=== PATIENT | male | born 1955 | race Caucasian/White ===

== ENCOUNTER → 2020-08-29 07:59 | Outpatient (CLI) | payer OTHER, SELFPAY ==
[2020-08-29 09:00] LABS: Alanine Aminotransferase 19 IU/L (<50); Albumin 4.3 g/dL (3.5-5.0); Albumin Globulin Ratio 1.9 (1.0-2.8); Alkaline Phosphatase 54 U/L (38-126); Aspartate Aminotransferase 27 IU/L (17-59); BUN Creatinine Ratio 27.5 (6-22); Bilirubin Total 0.7 mg/dL (0.2-1.3); Blood Urea Nitrogen 22 mg/dL (9-20); Calcium 9.4 mg/dL (8.4-10.2); Carbon Dioxide 29 mmol/L (22-32); Chloride 105 mmol/L (98-107); Cholesterol 187 mg/dL (140-199); Estimated Glomerular Filt Rate > 60.0 mL/min (>60); Globulin 2.3 g/dL (1.7-4.1); Glucose 102 mg/dL (80-110); HDL Cholesterol 61 mg/dL (40-60); HEMOLYSIS < 15 (0-50); LDL Cholesterol Calculated 106 mg/dL (<100); Potassium 4.7 mmol/L (3.4-5.1); Sodium 140 mmol/L (137-145); Total Protein 6.6 g/dL (6.3-8.2); Triglycerides 102 mg/dL (35-150)
[2020-08-29 09:26] LABS: Prostate Specific Antigen Scrn 1.27 ng/mL (0.1-4.0)
== END ==
PROVIDERS: PCP Internal Medicine; Referring Provider Internal Medicine; Visit Provider Internal Medicine
DX: Z00.00 Encounter for general adult medical examination without abnormal findings (principal); Z12.5 Encounter for screening for malignant neoplasm of prostate
CPT/HCPCS: 36415; 80053; 80061; G0103

== ENCOUNTER → 2020-09-28 15:36 | Outpatient (CLI) | payer OTHER, SELFPAY ==
--- NOTE | 2020-09-28 15:40 | DI.ECHO.S_ITS ---
[facility] +---------+ : : [address] : [address] [address] : : : : [id number] : : : : Phone: [phone]+ Echocardiogram Report + + :Name: SYLVIA KRUGER Study Date: 09/28/2020 Height: 73 in : :[facility] ReadingLocation: Weight: 170 lb : : Gender: Male BSA: 2.0 m2 : :: 1955 Age: 65 yrs BP: 128/89 mmHg: :Reason For Study: MVR : :Ordering Physician: ANASTASIIA, : :KARINE Khan Performed By: Kevin Brizuela : :Referring: KARINE LAURENT : + + Interpretation Summary The left ventricle is normal in size and wall thickness. The ejection fraction is estimated to be 50-55%. The right ventricle is normal in size and function. 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 The E velocity is about 1.23 m/s across mitral valve. The mitral valve mean gradient is 3.5 mmHg. No significant mitral valve stenosis. There is no mitral regurgitation noted. There is mild tricuspid regurgitation. The right ventricular systolic pressure is estimated to be at least 30.5 mmHg based on an estimated right atrial pressure of 15 mm Hg. Procedure: A two-dimensional transthoracic echocardiogram with color flow and Doppler was performed. The study quality was technically adequate. There is no prior echocardiogram noted for this patient. The patient was in sinus rhythm with heart rates between 78-84 bpm during the exam. Left Ventricle: The left ventricle is normal in size and wall thickness. There is no thrombus. The ejection fraction is estimated to be 50-55%. Septal motion is consistent with post-operative state. MV E/A: 1.4 Med Peak E' Denilson: 9.6 cm/sec E/E' med: 12.9. Right Ventricle: The right ventricle is normal in size and function. Atria: Both atria are normal in size. There is no Doppler evidence for an interatrial shunt. 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 The gradients for this prosthetic mitral valve are in the normal range. The mitral valve mean gradient is 3.5 mmHg. The E velocity is about 1.23 m/s across mitral valve. No significant mitral valve stenosis. There is no mitral regurgitation noted. Aortic Valve: The aortic valve is normal in structure and function. No aortic regurgitation is present. Tricuspid Valve: The tricuspid valve is normal. There is mild tricuspid regurgitation. The right ventricular systolic pressure is estimated to be at least 30.5 mmHg based on an estimated right atrial pressure of 15 mm Hg. Pulmonic Valve: The pulmonic valve is not well visualized. There is no pulmonic valvular regurgitation. Great Vessels: The aortic root is normal size. The dimensions of the ascending aorta are normal. The IVC is dilated (diameter is greater than 2.1 cm) and it collapses less than 50% with a sniff. This suggests a high right atrial pressure of 15 mm Hg. Pericardium/ Pleura There is no pericardial effusion. There is no pleural effusion. MMode/2D Measurements & Calculations LVIDd: 4.8 cm LVOT diam: 2.3 cm LVIDs: 3.2 cm Ao root diam: 3.6 cm FS: 33.3 % asc Aorta Diam: 3.3 cm IVSd: 0.78 cm LVPWd: 0.67 cm LV sanz. diameter/BSA (cm/m^2): 2.4 LV sys. diameter/BSA (cm/m^2): 1.6 LA A2 area: 15.4 cm2 RA long axis: 4.9 cm LA A4 area: 15.9 cm2 RA area: 18.2 cm2 LA length (vol): 4.9 cm RA vol: 57.4 ml LA vol: 42.1 ml RA : 28.6 ml/m2 LA vol index: 21.0 ml/m2 IVC diam: 2.5 cm TAPSE: 2.1 cm Doppler Measurements & Calculations Ao V2 max: 109.7 cm/sec LVOT Max Denilson: 87.3 cm/sec Ao V2 mean: 80.5 cm/sec LV V1 max P.0 mmHg Ao max P.8 mmHg LV V1 VTI: 17.8 cm Ao mean P.8 mmHg JESSICA(I,D): 3.5 cm2 Ao V2 VTI: 21.1 cm JESSICA(V,D): 3.3 cm2 sev ratio: 0.84 JESSICA indexed to BSA (cm^2/m^2): 1.7 MV E max denilson: 123.6 cm/sec TR max denilson: 197.0 cm/sec MV A max denilson: 91.0 cm/sec TR max P.5 mmHg MV E/A: 1.4 PA pr(Accel): 39.2 mmHg Med Peak E' Denilson: 9.6 cm/sec E/E' med: 12.9 Lat Peak E' Denilson: 10.8 cm/sec E/E' lat: 11.5 E/e' average: 12.2 MV dec time: 0.22 sec MVA(VTI): 2.7 cm2 MV V2 mean: 90.3 cm/sec SV(LVOT): 73.4 ml MV mean P.4 mmHg MV V2 VTI: 27.1 cm Reading Physician:06:23 PM
== END ==
PROVIDERS: PCP Internal Medicine; Referring Provider Internal Medicine; Visit Provider Internal Medicine
DX: I07.1 Rheumatic tricuspid insufficiency (principal)
CPT/HCPCS: 93306

== ENCOUNTER → 2022-10-31 14:18 | Outpatient (CLI) | payer MEDICARE, OTHER, SELFPAY ==
[2022-10-31 17:24] LABS: Prostate Specific Antigen Scrn 1.26 ng/mL (0.1-4.0)
== END ==
PROVIDERS: PCP Internal Medicine; Referring Provider Internal Medicine; Visit Provider Internal Medicine
DX: Z12.5 Encounter for screening for malignant neoplasm of prostate (principal)
CPT/HCPCS: 36415; G0103

== ENCOUNTER → 2023-05-12 15:37 | Outpatient (CLI) | payer MEDICARE, OTHER, SELFPAY ==
[2023-05-12 16:53] LABS: Add Manual Diff / Slide Review NO; Basophils Absolute Auto 0 /uL (0-100); Basophils Percent Auto 0.7 % (0-2); Eosinophils Absolute Auto 100 /uL (0-450); Eosinophils Percent Auto 2.1 % (2-4); Hematocrit 41.6 % (41-53); Lymphocytes Absolute Auto 1300 /uL (1100-4500); Lymphocytes Percent Auto 27.4 % (25-40); Mean Corpuscular HGB Conc 33.6 % (30-36); Mean Corpuscular Hemoglobin 29.6 PG (26-34); Mean Corpuscular Volume 88.1 fL (80-100); Monocytes Absolute Auto 400 /uL (0-900); Monocytes Percent Auto 8.7 % (3-14); Neutrophils Absolute Auto 3000 /uL (1500-7000); Neutrophils Percent Auto 61.1 % (50-75); Platelet Count 183 X10^3/uL (150-400); Red Blood Cell Count 4.72 X10^6/uL (4.5-5.9); Red Cell Distribution Width 13.6 % (11.6-14.8); White Blood Cell Count 4.9 X10^3/uL (4.5-11.0)
[2023-05-12 17:16] LABS: Alanine Aminotransferase 20 IU/L (<50); Albumin 4.4 g/dL (3.5-5.0); Albumin Globulin Ratio 1.6 (1.0-2.8); Alkaline Phosphatase 52 U/L (38-126); Aspartate Aminotransferase 28 IU/L (17-59); BUN Creatinine Ratio 27.5 (6-22); Bilirubin Total 0.5 mg/dL (0.2-1.3); Blood Urea Nitrogen 22 mg/dL (9-20); Calcium 9.3 mg/dL (8.4-10.2); Carbon Dioxide 30 mmol/L (22-32); Chloride 103 mmol/L (98-107); Estimated Glomerular Filt Rate > 60 mL/min (>60); Globulin 2.7 g/dL (1.7-4.1); Glucose 95 mg/dL (80-110); HEMOLYSIS < 15 (0-50); Potassium 4.3 mmol/L (3.4-5.1); Sodium 138 mmol/L (137-145); Total Protein 7.1 g/dL (6.3-8.2)
[2023-05-12 17:53] LABS: TSH w/ Reflex to FT4 1.62 uIU/mL (0.47-4.68)
== END ==
PROVIDERS: PCP Internal Medicine; Referring Provider Internal Medicine; Visit Provider Internal Medicine
DX: R00.0 Tachycardia, unspecified (principal)
CPT/HCPCS: 36415; 80053; 84443; 85025

== ENCOUNTER → 2023-05-22 14:38 | Outpatient (CLI) | payer MEDICARE, OTHER, SELFPAY ==
--- NOTE | 2023-05-22 14:39 | DI.ECHO.S_ITS ---
[facility] +---------+ : : [address] : [address] [address] : : : : [id number] : : : : Phone: [phone] +---------+ Echocardiogram Report + + :Name: SYLVIA KRUGER Study Date: 05/22/2023 Height: 73 in : :[facility] ReadingLocation: Weight: 165 lb : : Gender: Male BSA: 2.0 m2 : :: 1955 Age: 67 yrs BP: 126/90 mmHg: :Reason For Study: Tachycardia : :Ordering Physician: ANASTASIIA, : :KARINE Khan Performed By: Sarita Zavala : :Referring: KARINE LAURENT : + + Interpretation Summary 1) Normal left ventricular size and thickness with mildly reduced systolic function (EF 45-50%). 2) Mildly enlarged right ventricle with normal function. 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 Mitral valve function as expected (mean inflow gradient 5mmHg). There is trace mitral regurgitation. 4) The right ventricular systolic pressure is estimated to be at least 29 mmHg based on an estimated right atrial pressure of 15 mm Hg. 5) Compared to the Echo done 09/28/2020, LVEF has decreased slightly from 50- 55% to 45-50% on this study. Procedure: A two-dimensional transthoracic echocardiogram with color flow and Doppler was performed. The study quality was technically difficult. Comparison is made with the echocardiogram of 09/28/2020. The patient was in normal sinus rhythm during the exam. Left Ventricle: The left ventricle is normal in size and wall thickness. The ejection fraction is estimated to be 45-50%. Diastolic parameters suggest a relaxation abnormality of the left ventricle, consistent with probable normal filling pressures. Right Ventricle: The right ventricle is mildly dilated. The right ventricular systolic function is normal. Atria: The left atrium is mildly dilated. Right atrial size is normal. There is no Doppler evidence for an interatrial shunt. 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 The mitral valve mean gradient is 5 mmHg. There is trace mitral regurgitation. Aortic Valve: The aortic valve is trileaflet. The aortic valve opens well. There is mild aortic valve sclerosis. There is no aortic valve stenosis. No aortic regurgitation is present. Tricuspid Valve: The tricuspid valve is normal. There is no tricuspid stenosis. There is mild tricuspid regurgitation. The right ventricular systolic pressure is estimated to be at least 29 mmHg based on an estimated right atrial pressure of 15 mm Hg. Pulmonic Valve: The pulmonic valve leaflets are thin and pliable; valve motion is normal. There is no pulmonic valvular stenosis. There is trace pulmonic regurgitation. Great Vessels: The aortic root is normal size. The ascending aorta is normal in size. The pulmonary artery is normal size. The IVC is dilated (diameter is greater than 2.1 cm) and it collapses less than 50% with a sniff. This suggests a high right atrial pressure of 15 mm Hg. Pericardium/ Pleura There is no pericardial effusion. There is no pleural effusion. MMode/2D Measurements & Calculations LVIDd: 4.7 cm LVOT diam: 2.1 cm LVIDs: 3.5 cm Ao root diam: 3.6 cm FS: 25.5 % asc Aorta Diam: 3.1 cm IVSd: 0.80 cm LVPWd: 0.80 cm LV sanz. diameter/BSA (cm/m^2): 2.4 LV sys. diameter/BSA (cm/m^2): 1.8 LA A2 area: 24.4 cm2 RA long axis: 5.4 cm LA A4 area: 16.9 cm2 RA area: 18.4 cm2 LA length (vol): 6.0 cm RA vol: 52.9 ml LA vol: 58.4 ml RA : 26.7 ml/m2 LA vol index: 29.5 ml/m2 RVD1 (basal): 4.1 cm LVLs ap4: 7.8 cm LVLd ap2: 8.5 cm TAPSE_phl: 2.1 cm LVLs ap2: 7.3 cm Doppler Measurements & Calculations Lat Peak E' Denilson: 13.4 cm/sec TR max denilson: 188.0 cm/sec TR max P.2 mmHg PA V2 max: 75.6 cm/sec PA V2 mean: 53.7 cm/sec PA mean P.0 mmHg PA pr(Accel): 30.4 mmHg MV V2 mean: 106.0 cm/sec MV mean P.0 mmHg MV V2 VTI: 36.5 cm Reading Physician:05:07 PM
== END ==
PROVIDERS: PCP Internal Medicine; Referring Provider Internal Medicine; Visit Provider Internal Medicine
DX: R00.0 Tachycardia, unspecified (principal); Z98.890 Other specified postprocedural states; I08.2 Rheumatic disorders of both aortic and tricuspid valves
CPT/HCPCS: 93306

== ENCOUNTER → 2023-10-14 11:14 | Outpatient (CLI) | payer MEDICARE, OTHER, SELFPAY ==
[2023-10-14 12:13] LABS: Add Manual Diff / Slide Review NO; Basophils Absolute Auto 0 /uL (0-100); Basophils Percent Auto 0.4 % (0-2); Eosinophils Absolute Auto 0 /uL (0-450); Eosinophils Percent Auto 0.9 % (2-4); Hematocrit 40.8 % (41-53); Hemoglobin 13.6 g/dL (13.5-17.5); Lymphocytes Absolute Auto 1100 /uL (1100-4500); Lymphocytes Percent Auto 19.7 % (25-40); Mean Corpuscular HGB Conc 33.3 % (30-36); Mean Corpuscular Hemoglobin 29.8 PG (26-34); Mean Corpuscular Volume 89.6 fL (80-100); Monocytes Absolute Auto 400 /uL (0-900); Monocytes Percent Auto 6.9 % (3-14); Neutrophils Absolute Auto 3900 /uL (1500-7000); Neutrophils Percent Auto 72.1 % (50-75); Platelet Count 177 X10^3/uL (150-400); Red Blood Cell Count 4.55 X10^6/uL (4.5-5.9); White Blood Cell Count 5.4 X10^3/uL (4.5-11.0)
[2023-10-14 12:36] LABS: Alanine Aminotransferase 17 IU/L (<50); Albumin 4.1 g/dL (3.5-5.0); Albumin Globulin Ratio 1.8 (1.0-2.8); Alkaline Phosphatase 49 U/L (38-126); Aspartate Aminotransferase 25 IU/L (17-59); BUN Creatinine Ratio 24.6 (6-22); Bilirubin Total 0.7 mg/dL (0.2-1.3); Blood Urea Nitrogen 17 mg/dL (9-20); Calcium 9.1 mg/dL (8.4-10.2); Carbon Dioxide 30 mmol/L (22-32); Chloride 107 mmol/L (98-107); Estimated Glomerular Filt Rate > 60 mL/min (>60); Globulin 2.3 g/dL (1.7-4.1); Glucose 77 mg/dL (80-110); HEMOLYSIS < 15 (0-50); Potassium 4.4 mmol/L (3.4-5.1); Sodium 142 mmol/L (137-145); Total Protein 6.4 g/dL (6.3-8.2)
[2023-10-14 13:08] LABS: TSH w/ Reflex to FT4 1.16 uIU/mL (0.47-4.68)
== END ==
PROVIDERS: PCP Internal Medicine; Referring Provider Internal Medicine; Visit Provider Internal Medicine
DX: R00.2 Palpitations (principal)
CPT/HCPCS: 36415; 80053; 84443; 85025

== ENCOUNTER → 2023-11-25 10:09 | Outpatient (CLI) | payer MEDICARE, OTHER, SELFPAY ==
[2023-11-25 11:11] LABS: Influenza A - CEPHEID Flu A NEGATIVE (NEGATIVE); Influenza B - CEPHEID Flu B NEGATIVE (NEGATIVE); Respiratory Syncytial Virus Negative (Negative)
[2023-11-25 11:17] LABS: COVID-19 CEPHEID 4-PLEX PCR Negative (Negative)
== END ==
PROVIDERS: PCP Internal Medicine; Visit Provider Physician Assistant
DX: R05.1 Acute cough (principal)
CPT/HCPCS: 0241U

== ENCOUNTER → 2024-02-19 14:31 | Outpatient (CLI) | payer MEDICARE, OTHER, SELFPAY ==
[2024-02-19 15:33] LABS: BUN Creatinine Ratio 23.2 (6-22); Blood Urea Nitrogen 19 mg/dL (9-20); Calcium 8.7 mg/dL (8.4-10.2); Carbon Dioxide 26 mmol/L (22-32); Chloride 108 mmol/L (98-107); Estimated Glomerular Filt Rate > 60 mL/min (>60); Glucose 90 mg/dL (80-110); HEMOLYSIS < 15 (0-50); Potassium 4.6 mmol/L (3.4-5.1); Sodium 139 mmol/L (137-145)
== END ==
PROVIDERS: PCP Internal Medicine; Referring Provider Internal Medicine; Visit Provider Internal Medicine
DX: I42.9 Cardiomyopathy, unspecified (principal)
CPT/HCPCS: 36415; 80048

== ENCOUNTER → 2024-08-06 09:09 | Outpatient (CLI) | payer MEDICARE, OTHER, SELFPAY ==
--- NOTE | 2024-08-06 09:11 | DI.ECHO.S_ITS ---
[facility]---------+ [facility] : : [address] : : [place] : : [id number] : : Phone: [phone] Echocardiogram Report + + :Name: SYLVIA KRUGER Study Date: 08/06/2024 Height: 73 in : :[facility] ReadingLocation: Weight: 160 lb : : Gender: Male BSA: 2.0 m2 : :: 1955 Age: 68 yrs BP: 125/87 mmHg: :Reason For Study: SYSTOLIC HEART FAILURE : :Ordering Physician: OSCAR MENDES Performed By: Sina Villasenor : :Referring: OSCAR MENDES : + + Interpretation Summary 1. The left ventricular contractility is mildly compromised. Estimate ejection fraction approximately 45 to 50% with mild global hypokinesis. No LVH. Unable to comment on diastolic function. 2. The right ventricle contractility is normal. 3. All cardiac chambers are of normal size. 4. No significant valvular abnormalities. Mitral annular ring noted in the mitral position with no significant insufficiency nor stenosis of the mitral valve. 5. No obvious intracardiac shunts. 6. No obvious intracardiac masses nor thrombi. 7. No hemodynamically significant pericardial effusion. 8. Low right-sided filling pressures. Conclusion: Mildly compromised left ventricular systolic function with intact mitral valve repair. When compared with previous echocardiogram, no significant changes have occurred. Procedure: A two-dimensional transthoracic echocardiogram with color flow and Doppler was performed. The study quality was technically good. Comparison is made with the echocardiogram of 11/14/2023. The patient was in normal sinus rhythm during the exam. Left Ventricle: The left ventricle is normal in size. There is normal left ventricular wall thickness. There is no ventricular septal defect visualized. The ejection fraction is estimated to be 45-50%. There is mild global hypokinesis of the left ventricle. Right Ventricle: The right ventricle is normal in size and function. Atria: The left atrial size is normal. Right atrial size is normal. There is no Doppler evidence for an interatrial shunt. 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 The mitral valve mean gradient is 3.1 mmHg. There is no mitral regurgitation noted. Aortic Valve: The aortic valve is trileaflet. The aortic valve opens well. No aortic regurgitation is present. Tricuspid Valve: The tricuspid valve leaflets are thin and pliable. There is trace tricuspid regurgitation. Pulmonic Valve: The pulmonic valve leaflets are thin and pliable; valve motion is normal. There is trace pulmonic regurgitation. Great Vessels: The aortic root is normal size. The dimensions of the ascending aorta are normal. The pulmonary artery is normal size. The IVC is of normal diameter and collapses greater than 50% with a sniff. This suggests a low right atrial pressure of 3 mm Hg. Pericardium/ Pleura There is no pericardial effusion. There is no pleural effusion. MMode/2D Measurements & Calculations LVIDd: 4.3 cm LVOT diam: 2.4 cm LVIDs: 3.0 cm Ao root diam: 3.5 cm FS: 30.0 % asc Aorta Diam: 3.4 cm EPSS: 0.58 cm Ao Arch Diam (Prox Trans): 1.9 cm IVSd: 0.69 cm LVPWd: 0.90 cm LV sanz. diameter/BSA (cm/m^2): 2.2 LV sys. diameter/BSA (cm/m^2): 1.5 LA A2 area: 22.8 cm2 RA long axis: 4.4 cm LA A4 area: 18.2 cm2 RA area: 15.2 cm2 LA length (vol): 5.7 cm RA vol: 44.6 ml LA vol: 62.2 ml RA : 22.8 ml/m2 LA vol index: 31.8 ml/m2 IVC diam: 2.0 cm RVD1 (basal): 3.6 cm RVD2 (mid): 3.2 cm TAPSE: 2.1 cm Doppler Measurements & Calculations Ao V2 max: 94.6 cm/sec LVOT Max Denilson: 64.0 cm/sec Ao V2 mean: 64.8 cm/sec LV V1 max P.6 mmHg Ao max P.6 mmHg LV V1 VTI: 12.7 cm Ao mean P.8 mmHg JESSICA(I,D): 3.2 cm2 Ao V2 VTI: 18.0 cm JESSICA(V,D): 3.1 cm2 sev ratio: 0.71 JESSICA indexed to BSA (cm^2/m^2): 1.6 MV E max denilson: 114.6 cm/sec TR max denilson: 198.4 cm/sec MV A max denilson: 90.1 cm/sec TR max P.7 mmHg MV E/A: 1.3 PA V2 max: 85.3 cm/sec Med Peak E' Denilson: 7.7 cm/sec PA V2 mean: 59.5 cm/sec E/E' med: 14.8 PA mean P.6 mmHg Lat Peak E' Denilson: 9.2 cm/sec PA pr(Accel): 31.0 mmHg E/E' lat: 12.5 E/e' average: 13.6 MV dec time: 0.22 sec MVA(VTI): 1.8 cm2 MV V2 mean: 83.4 cm/sec SV(LVOT): 57.6 ml MV mean P.1 mmHg MV V2 VTI: 32.1 cm Reading Physician:
== END ==
PROVIDERS: PCP Internal Medicine; Referring Provider Internal Medicine; Visit Provider Internal Medicine
DX: I50.22 Chronic systolic (congestive) heart failure (principal); Z98.890 Other specified postprocedural states
CPT/HCPCS: 93306

== ENCOUNTER → 2024-08-19 15:38 | Outpatient (CLI) | payer MEDICARE, OTHER, SELFPAY ==
--- NOTE | 2024-08-19 15:39 | DI.CT.S_ITS ---
PROCEDURE: CT CHEST WO CON INDICATIONS: Pulmonary nodule, see comparison section below. TECHNIQUE: Noncontrast 5 mm thick sections acquired from the pulmonary apices to the posterior costophrenic angles. 1 mm lung window, 5 mm thick coronal and sagittal and 7 mm axial MIP reformats were then acquired. For radiation dose reduction, the following was used: automated exposure control, adjustment of mA and/or kV according to patient size. COMPARISON: None. A report from a prior CT coronary artery scoring study from [facility] was obtained for review but the hard copy images are not available for review. The report describes a 6 mm nodule along the left major fissure and recommended a six-month follow-up. FINDINGS: Image quality: Diagnostic. Lower Neck: No enlarged lymph nodes. Thyroid: No thyroid nodules which require sonographic follow up, per consensus guidelines. Axillae: No enlarged lymph nodes. Chest Wall: Unremarkable. Bones: Unremarkable. Lungs and Pleura: No pneumothorax or pleural effusions. A 3 mm maximal AP dimension nodular opacity is seen along the posterior border of the left major fissure, mid chest level, seen on series 3, image 185, measuring up to 8 mm in maximal transverse dimension, 3/186. No new nodule is seen elsewhere. Heart: Heart size is normal. No pericardial effusion. Thoracic Vessels: The aorta and pulmonary arteries demonstrate normal size. Mediastinum and Sonal: No enlarged lymph nodes. Esophagus: No wall thickening. No hiatal hernia. Upper Abdomen: Visualized upper abdomen solid organs and bowel loops appear normal. IMPRESSION: The left major fissure nodular opacity is near the hilum and likely represents a fissural lymph node. However, the comparison prior study allowing accurate assessment for size and morphology has not been obtained for review. Ideally that study should be obtained an reviewed, with an addendum to this report generated. Multiple attempts were made to obtain the comparison images. Perhaps the ordering healthcare provider and/or the patient can successfully obtained those images from the [facility]. Dictated by: Jhon Torre M.D. on 08/20/2024 at 13:11 Approved by: Jhon Torre M.D. on 08/20/2024 at 13:19
== END ==
PROVIDERS: PCP Internal Medicine; Referring Provider Internal Medicine; Visit Provider Internal Medicine
DX: R91.1 Solitary pulmonary nodule (principal)
CPT/HCPCS: 71250

== ENCOUNTER → 2025-02-10 15:58 | Outpatient (CLI) | payer MEDICARE, OTHER, SELFPAY ==
[2025-02-10 16:17] LABS: Add Manual Diff / Slide Review NO; Hematocrit 39.1 % (41-53); Hemoglobin 13.4 g/dL (13.5-17.5); Lymphocytes Absolute Auto 1200 /uL (1100-4500); Mean Corpuscular HGB Conc 34.3 % (30-36); Mean Corpuscular Hemoglobin 30.6 PG (26-34); Mean Corpuscular Volume 89.4 fL (80-100); Platelet Count 153 X10^3/uL (150-400)
[2025-02-10 17:03] LABS: Alanine Aminotransferase 20 IU/L (<50); Albumin 4.3 g/dL (3.5-5.0); Albumin Globulin Ratio 2.0 (1.0-2.8); Alkaline Phosphatase 53 U/L (38-126); Blood Urea Nitrogen 18 mg/dL (9-20); Calcium 9.1 mg/dL (8.4-10.2); Carbon Dioxide 30 mmol/L (22-32); Chloride 104 mmol/L (98-107); Estimated Glomerular Filt Rate > 60 mL/min (>60); Globulin 2.2 g/dL (1.7-4.1); Glucose 98 mg/dL (70-99); HEMOLYSIS < 15 (0-50); Magnesium 1.9 mg/dL (1.6-2.3); Potassium 4.5 mmol/L (3.4-5.1); Sodium 138 mmol/L (137-145); Total Protein 6.5 g/dL (6.3-8.2)
[2025-02-10 17:32] LABS: TSH w/ Reflex to FT4 1.60 uIU/mL (0.47-4.68)
== END ==
PROVIDERS: PCP Internal Medicine; Referring Provider Internal Medicine; Visit Provider Internal Medicine
DX: D64.9 Anemia, unspecified (principal); M62.838 Other muscle spasm; R13.10 Dysphagia, unspecified
CPT/HCPCS: 36415; 80053; 83735; 84443; 85025

== ENCOUNTER → 2025-02-13 13:03 | Outpatient (CLI) | payer MEDICARE, OTHER, SELFPAY ==
--- NOTE | 2025-02-13 13:05 | DI.MRI.S_ITS ---
PROCEDURE: MR HEAD/BRAIN WO/W CON INDICATIONS: cranial nerve disease, facial muscle spasm TECHNIQUE: Noncontrast axial T1 spin echo, axial T2 fast spin echo, sagittal and axial FLAIR, coronal T2 fast spin echo, axial gradient echo, axial diffusion and ADC through the brain. After the administration of contrast, axial and coronal and sagittal T1 spin echo with fat saturation through the brain. COMPARISON: [facility], CT, CT CHEST WO CON, 08/19/2024, 15:47. FINDINGS: Image quality: Excellent. CSF spaces: Basal cisterns are patent. No extra-axial fluid collections. Ventricles are normal in size and shape. Brain: No midline shift. No acute intracranial bleeds within the right anterolateral frontal lobe, there are 2 adjacent foci of irregular peripheral enhancement, spanning 40 mm anteroposterior by 20 mm transverse by 40 mm craniocaudal. There is moderate surrounding ill-defined FLAIR signal elevation, spanning 60 mm anteroposterior. There is a small amount of low gradient echo signal intensity material within the anterior more the of this lesion, consistent with hemorrhagic products. There is increased diffusion signal within these lesions. Overlying sulcal effacement is present. There is mild, roughly 3 mm of leftward midline shift anteriorly is cerebral volume loss for age. There is periventricular white matter chronic small vessel ischemic change. The brainstem appears normal. Diffusion-weighted images demonstrate no acute infarct. No chronic ischemic insults. Normal intravascular flow voids are present. Skull and face: Calvarial marrow is normal in signal. Orbits appear normal. Sinuses: Sinuses and mastoids appear clear. IMPRESSION: 1. Indeterminate right frontal lobe lesion with surrounding vasogenic edema and mild associated leftward midline shift. Differential considerations include abscess, as well as metastatic disease. There is a small amount of chronic hemorrhagic material within the anterior aspect of this lesion. No evidence of acute intracranial hemorrhage. Dictated by: Darren Hernandez M.D. on 02/14/2025 at 12:09 Approved by: Darren Hernandez M.D. on 02/14/2025 at 12:18
== END ==
LOC: MRI 13:04
PROVIDERS: PCP Internal Medicine; Referring Provider Internal Medicine; Visit Provider Internal Medicine
DX: G52.9 Cranial nerve disorder, unspecified (principal); G51.9 Disorder of facial nerve, unspecified; R13.10 Dysphagia, unspecified
CPT/HCPCS: 70553; A9579